=== PATIENT | female | born 1950 | race Caucasian/White ===

== ENCOUNTER 2022-05-31 08:47 | Day surgery (SDC) | payer MEDICARE, OTHER ==
[~2022-05-31] VITALS: Ht 165.1 cm; Wt 77.3 kg
[~2022-05-31 08:47] MED LIST: BUPROPION XL300 MG PO; CALCIUM 600-VI1 EAC9 PO; LIPITOR20 MG PO
[2022-05-31] MEDS ORDERED: HYDROXYZINE HCL10 MG PO (09:15)
[2022-05-31] MEDS ORDERED: DONEPEZIL HCL10 MG (09:16)
[2022-05-31] MEDS ORDERED: HYDROXYZINE HCL25 MG PO (09:16)
--- NOTE | 2022-05-31 10:09 | NUR ---
PATIENT UPDATED ON WAIT TIME. PATIENT VERBALIZED UNDERSTANDING. NO OTHER NEEDS AT THIS TIME.
--- NOTE | 2022-05-31 10:44 | NUR ---
PATIENT UPDATED WITH CURRENT INFORMATION. NO OTHER NEEDS AT THIS TIME.
--- NOTE | 2022-05-31 12:07 | NUR ---
05/31/22 1207 Leah Vidal 1204 PATIENT ARRIVES TO PACU RESTING WITH EYES CLOSED. AWAKENS WITH VERBAL STIMULI. ASKS/ANSWERS QUESTIONS APPROPRIATELY, BACK TO SLEEP WHEN NOT STIMULATED. RESP EVEN AND UNLABORED, NC AT 3 LITERS, TURNED OFF ON ARRIVAL TO PACU.
--- NOTE | 2022-06-02 14:06 | OR ---
[facility] [address], [place] [address] Signed DATE OF OPERATION: 05/31/2022 SURGEON: Loy Lee MD PREOPERATIVE DIAGNOSIS: Colon screening. POSTOPERATIVE DIAGNOSIS: 1. Sigmoid diverticulosis. 2. Polyps x2 (left colon and cecum). PROCEDURE: Total colonoscopy to cecum with cold morcellation polypectomy x2. ANESTHESIA: Intravenous sedation, fentanyl 100 mcg and Versed 6 mg. INDICATIONS: This 71-year-old white woman is a patient of Loy Johansen PA-C in [place], [place]. She resides in [place] as well. She underwent colonoscopy greater than [address] Smith in the [facility]. She is currently symptom free, having no bleeding, diarrhea, or constipation. She has no family history of colon cancer though her father had polyps. She understands the risk of colonoscopy including but not limited to bleeding, infection, and perforation and wished to proceed. FINDINGS: The prep was good. Complete colonoscopy was undertaken of the cecum. There was a diminutive polyp of the cecum, which was excised and a left colonic sessile polyp also excised with cold morcellation technique. Scattered diverticula of the sigmoid and left colon were infrequent. DESCRIPTION OF PROCEDURE: The patient was brought to the endoscopy suite and placed in lateral decubitus position given intravenous sedation to the point of slurred speech and nystagmus. Digital rectal examination was normal. An Olympus video colonoscope was passed into the rectum and manipulated throughout the colon, ultimately intubating the cecum itself. The ileocecal valve and appendiceal orifice were normal. A diminutive polyp was noted at cecum was excised with cold morcellation technique. The scope was withdrawn and examination throughout showed no Electronically Signed By: LOY LEE MD 06/02/22 1406 PATIENT NAME: GABI OLIVAREZ OPERATIVE REPORT DATE OF : 50 REPORT #: [id number] PHYSICIAN: LOY LEE MD PCP: LOY JOHANSEN REPORT IS CONFIDENTIAL AND NOT TO BE RELEASED WITHOUT AUTHORIZATION [facility] [address], [place] [address] Signed sign of abnormality until the proximal descending colon, where a more substantial sessile polyp was noted, this was excised with cold morcellation technique completely as well. Further withdrawal affirmed a few scattered diverticula. The scope was retroflexed in the rectum, which showed no abnormalities. Scope was removed. The patient was taken to the recovery room in good condition. CONCLUDING DIAGNOSIS: Minimal diverticula and polyps x2. PLAN: Recommend repeat colonoscopy in 5 years and recommend high-fiber diet. MD LINH Ortiz/YESENIA /[id number] cc: JESUS ALBERTO [place] Copies: LOY JOHANSEN ~ Electronically Signed By: LOY LEE MD 06/02/22 1406 PATIENT NAME: GABI OLIVAREZ OPERATIVE REPORT DATE OF : 50 REPORT #: [id number] PHYSICIAN: LOY LEE MD PCP: LOY JOHANSEN REPORT IS CONFIDENTIAL AND NOT TO BE RELEASED WITHOUT AUTHORIZATION
--- NOTE | 2022-06-06 10:47 | PATH ---
[facility] [address], [place] [address] Signed SPECIMEN(S): A CECUM POLYP SPECIMEN(S): B DESCENDING/LEFT COLON POLYP SPECIMEN SOURCE: A. CECUM POLYP B. DESCENDING/LEFT COLON POLYP CLINICAL HISTORY: Screening colonoscopy. FINAL PATHOLOGIC DIAGNOSIS: A. Colon, cecum, polypectomy: - Leiomyoma. B. Colon, descending/left, polypectomy: - Tubular adenoma, one fragment. - Additional fragments of colonic epithelium demonstrate benign intramucosal lymphoid nodules. - There is no evidence of high-grade dysplasia or malignancy. COMMENT: Regarding specimen A, the biopsy contains a small, benign leiomyoma arising in the muscularis mucosae. There is no evidence of dysplasia or malignancy. TWK:[id number]:[id number] MICROSCOPIC EXAMINATION: Histologic sections of all submitted blocks are examined by light microscopy. These findings, together with the gross examination, support the pathologic diagnosis. GROSS DESCRIPTION: A. The specimen, labeled and designated "Lauck, cecum polyp," is received in formalin and consists of two laureano soft tissue fragments, ranging from 0.2-0.4 cm. Entirely submitted in (A1). B. The specimen, labeled and designated "Lauck, descending/left colon polyp," is received in formalin and consists of five laureano soft tissue fragments, ranging from 0.1-0.3 cm. Entirely submitted in (B1). VB (under the direct supervision of a pathologist) The Gross Description was prepared using a voice recognition system. The report was reviewed for accuracy; however, sound-alike word errors, addition and/or deletions may occur. If there is any PATIENT NAME: GABI OLIVAREZ PATHOLOGY DATE OF : 50 REPORT #: [id number] PHYSICIAN: LIEN DUMONT PCP: LOY SCHAEFFER REPORT IS CONFIDENTIAL AND NOT TO BE RELEASED WITHOUT AUTHORIZATION [facility] [address], [place] [address] Signed question about this report, please contact Client Services. PERFORMING LABORATORY: The technical component was performed by [facility], [address] [place] [address] (CLIA# [id number]). The professional interpretation was performed by [facility] Pathology, [facility], [address] [place] [phone] (CLIA#: [id number]). Diagnostician: Maxx Chopra MD Pathologist Electronically Signed 06/06/2022 Copies: ~ PATIENT NAME: GABI OLIVAREZ PATHOLOGY DATE OF : 50 REPORT #: [id number] PHYSICIAN: LIEN DUMONT PCP: LOY SCHAEFFER REPORT IS CONFIDENTIAL AND NOT TO BE RELEASED WITHOUT AUTHORIZATION
== END 2022-05-31 13:05 | disposition home or self-care (01) ==
LOC: DS 08:47 → OPS 08:47 → DS 09:07 → OPS 11:00 → DS 14:00
PROVIDERS: ATTEND Surgery
PROC: 0DDK8ZX Extraction of Ascending Colon, Via Natural or Artificial Opening Endoscopic, Diagnostic (ICD-10-PCS; principal; 2022-05-31 11:00)
DX: Z12.11 Encounter for screening for malignant neoplasm of colon (principal); D12.0 Benign neoplasm of cecum; D12.4 Benign neoplasm of descending colon; E78.5 Hyperlipidemia, unspecified; Z86.59 Personal history of other mental and behavioral disorders; Z40.02 Encounter for prophylactic removal of ovary(s); K57.30 Diverticulosis of large intestine without perforation or abscess without bleeding
CPT/HCPCS: 99153; G0500; J2250; J3010; J7121